=== PATIENT | female | born 1995 | race Two or more races ===

== ENCOUNTER 2025-02-08 16:41 | Emergency (ER) | payer MEDICAID ==
[~2025-02-08] VITALS: Ht 165.1 cm; Wt 70.0 kg
[2025-02-08 16:44] VITALS: O2SAT 99
[2025-02-08] MEDS: TETRACAINE 0.5% OPHTH DROPS 4ML BOTHEYE ONE (19:15)
[2025-02-08] MEDS: FLUORESCEIN SODIUM 1MG/STRIP BOTHEYE ONE (19:15)
[2025-02-08] MEDS ORDERED: TOBR5DRO70 EACHEYE (19:48)
[2025-02-08 20:28] VITALS: BP 123/74; PULSE 68; RESP 13; TEMP 36.9; O2SAT 100
== END 2025-02-08 20:31 | disposition home or self-care (01) ==
LOC: ER 16:41
DX: H10.9 Unspecified conjunctivitis (principal); Z79.899 Other long term (current) drug therapy
CPT/HCPCS: 99283